=== PATIENT | male | born 2000 | race Hispanic/Latino ===

== ENCOUNTER 2022-07-01 11:31 | Emergency (ER) | payer OTHER, SELFPAY ==
[2022-07-01 11:58] VITALS: BP 135/79; PULSE 86; RESP 17; TEMP 36.5; O2SAT 99
--- NOTE | 2022-07-01 14:09 | ED.LOWEXIN ---
HPI - Extremity Injury (Lower) General Chief Complaint: Extremity Injury, Lower Stated Complaint: FOOT PAIN Time Seen by Provider: 07/01/22 13:52 Source: patient Mode of arrival: ambulatory Limitations: no limitations and language barrier History of Present Illness HPI Narrative: Patient is a 22-year-old male who presents the ED with report of left foot pain. Patient is primarily Italian speaking. He does speak some Persian. I offered to utilize [employer] specialist however patient refused. Patient reports having painful hard bumps on his left toes for the past 1 week. Over the last couple days, he has also noticed irritation, small cuts, redness, and almost blistering to plantar toe creases and webspaces. Patient has been cleaning feet daily at home. Denies any fever, numbness, tingling, weakness, known injury. Review of Systems Review of Systems: CONSTITUTIONAL: Denies fever, chills, or sweats. SKIN: Reports blistering/irritation/redness to toes. MUSCULOSKELETAL: Reports L foot pain. NEUROLOGIC: Denies tingling, numbness, or weakness. All systems reviewed & are unremarkable except as noted in HPI and below PMFSH Past Medical History Medical History (Updated 07/01/22 @ 18:59 by Kyleigh Solano PA-C) No pertinent past medical history Surgical History Surgical History (Updated 07/01/22 @ 18:59 by Kyleigh Solano PA-C) No pertinent past surgical history Social History Social History (Updated 07/01/22 @ 18:59 by Kyleigh Solano PA-C) Smoking status: Never smoker Exam Narrative: GENERAL: Well appearing, well-nourished, non-toxic, in no acute distress. NECK: Supple. No adenopathy, no masses. RESPIRATORY: Airway patent, respirations nonlabored. CARDIOVASCULAR: Regular rate and rhythm without murmurs, rubs, or gallops. Pedal pulses 2+ and equal bilaterally. MUSCULOSKELETAL: Moves all extremities. Strength/ROM intact without gross deformities or TTP. No edema. SKIN: Warm, dry, normal color. Erosions, irritation, fissures, white scaling, moist macerated skin in between toes, worst between 2/3 and 3/4 web-spaces and in plantar toe creases of left foot. Scattered plantar warts/verrucae to ball of left foot, distal pads of 1st and 2nd toes. NEURO: A&O X3. Speech clear. Cranial nerves II-XII grossly intact. Steady gait. No ataxic movements. PSYCHIATRIC: Appropriate mood and affect. Normal interaction. Course Vital Signs Vital signs: Vital Signs Temperature 97.7 F 07/01/22 11:58 Pulse Rate 86 07/01/22 11:58 Respiratory Rate 17 07/01/22 11:58 Blood Pressure 135/79 07/01/22 11:58 Pulse Oximetry 99 07/01/22 11:58 Oxygen Delivery Room Air 07/01/22 11:58 Temperature 97.7 F 07/01/22 11:58 Pulse Rate 86 07/01/22 11:58 Respiratory Rate 17 07/01/22 11:58 Blood Pressure 135/79 07/01/22 11:58 Pulse Oximetry 99 07/01/22 11:58 Oxygen Delivery Room Air 07/01/22 11:58 MDM - Extremity Injury (Lower) MDM Narrative Medical decision making narrative: Patient presented to ED with report of left foot pain, blistering, redness, hard bumps. Clinical exam consistent with tinea pedis and plantar warts. Will prescribe patient clotrimazole ointment for athlete's foot and salicylic acid patches for warts. I discussed treatment reports and emphasized the importance of keeping feet clean and dry, changing socks frequently, avoiding occlusive shoes. I will provide patient with podiatry information. Given reasons to return. All questions answered. Medical Records Attestation: I reviewed the patient's medical records. Discharge Plan Discharge Clinical Impression: Plantar wart of left foot Tinea pedis Qualifiers: Laterality: left Qualified Code(s): B35.3 - Tinea pedis Patient Disposition: Home, Self-Care Condition: Stable Instructions: Antibiotic Form, Plantar Wart (ED), Athlete's Foot (ED) Additional Instructions: You are being diagnosed with Athlete's foot, or
== END 2022-07-01 14:52 | disposition home or self-care (01) ==
PROVIDERS: Emergency Provider Emergency Medicine
DX: B07.0 Plantar wart (principal); B35.3 Tinea pedis
CPT/HCPCS: 99283